=== PATIENT | male | born 1970 | race Caucasian/White ===

== ENCOUNTER 2022-11-09 05:27 | Emergency (ER) | payer MEDICAID, MEDICARE ==
[~2022-11-09] VITALS: Ht 172.7 cm; Wt 75.0 kg
[2022-11-09 05:29] VITALS: BP 160/90; O2SAT 99
[2022-11-09] MEDS ORDERED: ACETAMINOPHEN 325MG TABLET PO ONE (05:45)
[2022-11-09] MEDS ORDERED: TOPUD PO (06:51)
[2022-11-09 07:25] VITALS: PULSE 90; RESP 18; TEMP 97.7
== END 2022-11-09 07:27 | disposition home or self-care (01) ==
LOC: ER 05:40
DX: M25.572 Pain in left ankle and joints of left foot (principal); M25.532 Pain in left wrist; R07.89 Other chest pain; V49.9XXA Car occupant (driver) (passenger) injured in unspecified traffic accident, initial encounter; Y93.89 Activity, other specified; Y92.89 Other specified places as the place of occurrence of the external cause; Y99.8 Other external cause status
CPT/HCPCS: 71045; 73110; 73610; 93005; 99284

== ENCOUNTER 2022-12-20 15:19 | Emergency (ER) | payer SELFPAY ==
[~2022-12-20] VITALS: Ht 175.3 cm; Wt 91.0 kg
[~2022-12-20 15:19] MED LIST: TOPUD PO
[2022-12-20 15:31] VITALS: BP 144/87; TEMP 98; O2SAT 97
[2022-12-20 15:33] VITALS: PULSE 71; RESP 20
[2022-12-20] MEDS ORDERED: KETOROLAC 30MG/ML VIAL IM ONE (16:30)
[2022-12-20] MEDS ORDERED: NAPR-1176 MT (16:55)
== END 2022-12-20 18:09 | disposition home or self-care (01) ==
LOC: ER 15:19
DX: M75.31 Calcific tendinitis of right shoulder (principal); Z98.890 Other specified postprocedural states; Z90.49 Acquired absence of other specified parts of digestive tract; V98.8XXA Other specified transport accidents, initial encounter; Y93.89 Activity, other specified; Y92.89 Other specified places as the place of occurrence of the external cause; Y99.8 Other external cause status
CPT/HCPCS: 73030; 99283; A4565